=== PATIENT | male | born 1995 | race Two or more races ===

== ENCOUNTER 2017-04-01 17:22 | Emergency (ER) | payer MEDICAID ==
[~2017-04-01] VITALS: Ht 177.8 cm; Wt 102.0 kg
[2017-04-01 17:58] VITALS: Ht 177.8 cm; Wt 102.0 kg
[2017-04-01 20:35] VITALS: BP 140/96
== END 2017-04-01 20:35 | disposition home or self-care (01) ==
LOC: ED 17:22
DX: L73.9 Follicular disorder, unspecified (principal)

== ENCOUNTER 2017-05-29 11:16 | Emergency (ER) | payer OTHER ==
[~2017-05-29] VITALS: Ht 175.3 cm; Wt 102.5 kg
[2017-05-29 11:24] VITALS: Ht 175.3 cm; Wt 102.5 kg
[2017-05-29 15:39] LABS: BASOPHIL % 0.3 % (0-2); PLATELET COUNT 255 x10^3mcL (130-400); RED CELL DISTRIBUTION WIDTH 14.4 % (11.5-14.5)
[2017-05-29 15:42] LABS: CALCIUM 9.5 mg/dL (8.5-10.1); CARBON DIOXIDE 25.4 mmol/L (21-32); CHLORIDE SERUM 101 mmol/L (98-107); CREATININE SERUM 0.8 mg/dL (0.7-1.3); GFR1 > 60 mL/min; GLUCOSE SERUM 89 mg/dL (74-106); POTASSIUM SERUM 4.3 mmol/L (3.5-5.1); SODIUM SERUM 138 mmol/L (136-145)
[2017-05-29 15:49] LABS: ALBUMIN 4.4 g/dL (3.4-5.0); ALKALINE PHOSPHATASE 70 U/L (46-116); ALT/SGPT 61 U/L (16-63); AST/SGOT 32 U/L (15-37); BILIRUBIN TOTAL 0.4 mg/dL (0.20-1.00); FREE T4 0.95 ng/dL (0.76-1.46); TOTAL PROTEIN, SERUM 8.6 g/dL (6.4-8.2)
[2017-05-29 19:22] VITALS: BP 142/97
== END 2017-05-29 19:22 | disposition home or self-care (01) ==
LOC: ED 11:16
PROVIDERS: Emergency Medicine
DX: B34.9 Viral infection, unspecified (principal); E86.0 Dehydration; K21.9 Gastro-esophageal reflux disease without esophagitis; F84.0 Autistic disorder
CPT/HCPCS: 84439; J7030

== ENCOUNTER 2017-10-12 06:35 | Emergency (ER) | payer OTHER ==
[2017-10-12 07:47] LABS: BASOPHIL % 0.2 % (0-2); PLATELET COUNT 251 x10^3mcL (130-400); RED CELL DISTRIBUTION WIDTH 13.6 % (11.5-14.5)
[2017-10-12 08:06] LABS: CALCIUM 8.6 mg/dL (8.5-10.1); CARBON DIOXIDE 24.7 mmol/L (21-32); CHLORIDE SERUM 105 mmol/L (98-107); CREATININE SERUM 1.1 mg/dL (0.7-1.3); GFR1 > 60 mL/min; GLUCOSE SERUM 113 mg/dL (74-106); POTASSIUM SERUM 4.9 mmol/L (3.5-5.1); SODIUM SERUM 140 mmol/L (136-145)
[2017-10-12 08:17] LABS: ALBUMIN 3.9 g/dL (3.4-5.0); ALKALINE PHOSPHATASE 58 U/L (46-116); ALT/SGPT 45 U/L (16-63); AST/SGOT 22 U/L (15-37); BILIRUBIN TOTAL 0.37 mg/dL (0.20-1.00); CHOLESTEROL 211 mg/dL (<200); HDL CHOLESTEROL 32 mg/dL (40-60)
[2017-10-12 09:52] LABS: AMPHETAMINE QUAL UR NONE DETECTED (See below)
[2017-10-12 10:51] VITALS: BP 109/51
== END 2017-10-12 10:51 | disposition home or self-care (01) ==
LOC: ED 06:35
PROVIDERS: Emergency Medicine
DX: E86.0 Dehydration (principal); R55 Syncope and collapse; R11.10 Vomiting, unspecified; R19.7 Diarrhea, unspecified; K21.9 Gastro-esophageal reflux disease without esophagitis
CPT/HCPCS: 85378; Q0092

== ENCOUNTER 2018-04-08 16:24 | Emergency (ER) | payer OTHER ==
[~2018-04-08] VITALS: Ht 175.3 cm; Wt 102.1 kg
[2018-04-08 17:21] VITALS: Ht 175.3 cm; Wt 102.1 kg
[2018-04-08 19:15] VITALS: BP 124/74
== END 2018-04-08 19:15 | disposition home or self-care (01) ==
LOC: ED 16:24
DX: J11.1 Influenza due to unidentified influenza virus with other respiratory manifestations (principal); K21.9 Gastro-esophageal reflux disease without esophagitis; F41.9 Anxiety disorder, unspecified; F90.9 Attention-deficit hyperactivity disorder, unspecified type; F84.0 Autistic disorder

== ENCOUNTER 2018-10-18 13:25 | Emergency (ER) | payer OTHER ==
[~2018-10-18] VITALS: Ht 175.3 cm; Wt 100.2 kg
[2018-10-18 13:34] VITALS: Ht 175.3 cm; Wt 100.2 kg
[2018-10-18 16:25] VITALS: BP 111/63
== END 2018-10-18 16:25 | disposition home or self-care (01) ==
LOC: ED 13:25
DX: J02.9 Acute pharyngitis, unspecified (principal); K21.9 Gastro-esophageal reflux disease without esophagitis; F90.9 Attention-deficit hyperactivity disorder, unspecified type; F41.9 Anxiety disorder, unspecified; F42.9 Obsessive-compulsive disorder, unspecified
CPT/HCPCS: J1885